=== PATIENT | female | born 2000 | race Caucasian/White ===

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

== ENCOUNTER 2020-08-16 20:23 | Outpatient (CLI) | payer MEDICAID ==
[~2020-08-16] VITALS: Ht 170.2 cm; Wt 90.9 kg
[2020-08-16 20:40] VITALS: BP 126/57
[2020-08-16 20:56] LABS: MICROSCOPIC AUTO
[2020-08-16 21:07] LABS: AMPHETAMINE SCREEN, URINE Negative (Negative); BARBITURATE SCREEN, URINE Negative (Negative); BENZODIAZEPINE SCREEN, URINE Negative (Negative); CANNABINOID SCREEN, URINE Negative (Negative); COCAINE SCREEN, URINE Negative (Negative); METHADONE SCREEN, URINE Negative (Negative); OPIATE SCREEN, URINE Negative (Negative)
[2020-08-16] MEDS ORDERED: ONDA4TAB7 PO (21:11)
== END 2020-08-16 21:25 | disposition home or self-care (01) ==
LOC: LDOP 20:23
PROVIDERS: ATTEND Obstetrics & Gynecology
DX: O26.892 Other specified pregnancy related conditions, second trimester (principal); R10.9 Unspecified abdominal pain; Z3A.20 20 weeks gestation of pregnancy
CPT/HCPCS: 80307; 81001; 87086; 99211; G0463

== ENCOUNTER 2020-08-22 11:23 | Outpatient (CLI) | payer MEDICAID ==
[~2020-08-22 11:23] MED LIST: ONDA4TAB7 PO
== END 2020-08-22 13:15 | disposition home or self-care (01) ==
LOC: LDOP 11:23
PROVIDERS: ATTEND Obstetrics & Gynecology
DX: O99.612 Diseases of the digestive system complicating pregnancy, second trimester (principal); K80.20 Calculus of gallbladder without cholecystitis without obstruction; O26.892 Other specified pregnancy related conditions, second trimester; R10.11 Right upper quadrant pain; Z3A.21 21 weeks gestation of pregnancy
CPT/HCPCS: 76705; 99211; G0463

== ENCOUNTER 2020-11-26 15:01 | Inpatient (IN) | payer MEDICAID ==
[~2020-11-26] VITALS: Ht 170.2 cm; Wt 98.4 kg
[2020-11-26 15:23] VITALS: BP 109/61
[2020-11-26] MEDS ORDERED: ACETAMINOPHEN 325 MG TABLET PO PRN (16:00)
[2020-11-26 16:03] LABS: MICROSCOPIC INDICATED
[2020-11-26] MEDS: LACTATED RINGERS 1,000 ML IV SCH (16:17)
[2020-11-26 16:22] LABS: BASOPHILS % (AUTO) 0 % (0-1); EOSINOPHILS % (AUTO) 1 % (1-7); LYMPHOCYTES % (AUTO) 14 % (22-44); MEAN CORPUSCULAR HGB CONC 34.5 g/dL (32.4-35.8); MEAN PLATELET VOLUME 7.7 fL (7.4-10.4); MONOCYTES % (AUTO) 6 % (2-9); NEUTROPHILS % (AUTO) 79 % (42-75); PLATELET COUNT 252 x10^3/uL (130-400); RED BLOOD COUNT 3.56 x10^6/uL (3.82-5.3)
[2020-11-26 16:27] LABS: ALANINE AMINOTRANSFERASE 29 U/L (12-78); ALBUMIN 2.6 g/dL (3.4-5.0); ANION GAP 6 mmol/L (5-15); CALCIUM 9.1 mg/dL (8.5-10.1); CHLORIDE 107 mmol/L (98-107); CREATININE 0.58 mg/dL (0.55-1.02)
[2020-11-26 16:29] LABS: ALKALINE PHOSPHATASE 211 U/L (45-117); BILIRUBIN,TOTAL 0.3 mg/dL (0.2-1.0); TOTAL PROTEIN 7.3 g/dL (6.4-8.2)
[2020-11-26] MEDS: BETAMETHASONE 6 MG/ML, 5ML IM SCH (16:52)
[2020-11-26] MEDS: MAGNESIUM SULF. PMX 20GM/500ML 500 ML IV SCH (16:53)
[2020-11-26] MEDS ORDERED: MAGNESIUM SULFATE PMX 4GM/100M 100 ML IVPB ONE (17:00)
[2020-11-26] MEDS ORDERED: PREN1TAB60 PO (17:23)
[2020-11-26 17:27] VITALS: BP 113/53
[2020-11-26 19:35] LABS: INTERNATIONAL NORMALIZED RATIO 0.93 (0.93-1.1); PROTHROMBIN TIME 9.5 Seconds (9.6-11.5)
[2020-11-26] MEDS: DOCUSATE 100 MG CAPSULE PO SCH (21:00)
[2020-11-27] MEDS: MAGNESIUM SULF. PMX 20GM/500ML 500 ML IV SCH (00:36)
[2020-11-27] MEDS: LACTATED RINGERS 1,000 ML IV SCH (02:52)
[2020-11-27] MEDS ORDERED: ONDANSETRON 2MG/ML, 2ML IVPush PRN (07:30)
[2020-11-27] MEDS ORDERED: ONDANSETRON 2MG/ML, 2ML ONE (07:30)
[2020-11-27] MEDS ORDERED: PRENATAL VIT/IRON/FA 1 EACH TABLET HOMEMEDPO SCH (09:00)
[2020-11-27] MEDS: DOCUSATE 100 MG CAPSULE PO SCH (09:03)
[2020-11-27] MEDS: BETAMETHASONE 6 MG/ML, 5ML IM SCH (16:55)
== END 2020-11-27 17:30 | disposition home or self-care (01) | DRG 831 ==
LOC: LDOP 15:01 → LDIP 17:14
PROVIDERS: ADMIT Obstetrics & Gynecology; ATTEND Obstetrics & Gynecology
DX: O26.613 Liver and biliary tract disorders in pregnancy, third trimester (principal); K83.1 Obstruction of bile duct; O60.03 Preterm labor without delivery, third trimester; O99.333 Smoking (tobacco) complicating pregnancy, third trimester; Z20.822 Contact with and (suspected) exposure to COVID-19; Z3A.34 34 weeks gestation of pregnancy; Z90.49 Acquired absence of other specified parts of digestive tract
CPT/HCPCS: 36415; 76819; 80053; 81001; 83735; 85025; 85384; 85610; 85730; 86592; 86850; 86900; 87081; 87086; 87635; G0378; J0702; J2405; J3475; J7120

== ENCOUNTER 2020-11-28 08:08 | Outpatient (CLI) | payer MEDICAID ==
[~2020-11-28] VITALS: Ht 170.2 cm; Wt 95.5 kg
[~2020-11-28 08:08] MED LIST changes: +PREN1TAB60 PO
[2020-11-28 08:50] VITALS: BP 122/60
== END 2020-11-28 10:15 | disposition home or self-care (01) ==
LOC: LDOP 08:08
PROVIDERS: ATTEND Obstetrics & Gynecology
DX: O26.893 Other specified pregnancy related conditions, third trimester (principal); R10.9 Unspecified abdominal pain; Z3A.34 34 weeks gestation of pregnancy
CPT/HCPCS: 59025